=== PATIENT | female | born 1990 | race Two or more races ===

== ENCOUNTER 2024-02-13 17:38 | Emergency (ER) | payer OTHER, SELFPAY ==
[2024-02-13 17:41] VITALS: BP 114/54
[2024-02-13 17:57] LABS: % Basophils 0.8 % (0-2); % Immature Granulocytes 0.3 % (0-0.5); % Lymphocytes 44.8 % (20.5-51.1); % Monocytes 4.8 % (1.7-9.3); % Neutrophils 32.3 % (42.2-75.2); Absolute Basophils 0.1 10^3/uL (0-0.2); Absolute Eosinophils 1.2 10^3/uL (0-0.7); Absolute Lymphocytes 3.2 10^3/uL (1.2-3.4); Absolute Monocytes 0.3 10^3/uL (0.1-0.6); Absolute Neutrophils 2.3 10^3/uL (1.4-6.5); Hematocrit 35.3 % (37.0-47.0); Hemoglobin 12.2 g/dL (12.0-16.0); Mean Corp Hgb Conc. 34.6 g/dL (33.0-37.0); Mean Corpuscular Volume 83.8 fL (81.0-99.0); Nucleated Red Blood Cells % 0 %; Platelet Count 359 10^3/uL (130-400); Red Blood Cell Count 4.21 10^6/uL (4.20-5.40); Red Cell Dist. Width 12.2 % (11.5-14.5); White Blood Cell Count 7.1 10^3/uL (4.8-10.8)
[2024-02-13 18:19] LABS: ALT (SGPT) 11 U/L (0-35); AST (SGOT) 15 U/L (14-36); Albumin 3.9 g/dl (3.5-5.0); Alkaline Phosphatase 58 U/L (38-126); Blood Urea Nitrogen 18 mg/dl (7-17); Calcium 9.4 mg/dl (8.4-10.2); Carbon Dioxide 25 mmol/L (22-30); Chloride 103 mmol/L (98-107); Glucose 86 mg/dl (70-99); Potassium 4.5 mmol/L (3.5-5.1); Sodium 136 mmol/L (135-145); Total Bilirubin 0.5 mg/dl (0.2-1.3); Total Protein 7.2 g/dl (6.3-8.2); eGFR 56.03
--- NOTE | 2024-02-13 21:48 | ED.GENMED ---
History of Present Illness
General
Chief Complaint: Problems
Source: patient
Exam Limitations: none
Time Seen by Provider: 02/13/24 20:48
Travel History
Have you had any contact with someone who has COVID-19?: No
Do you have any symptoms of coronavirus? Fever > 100 degrees, chills, cough, shortness of breath, sore throat, loss of taste or smell, muscle aches, or headache?: No
History of Present Illness
History of Present Illness:
This is a 33 year old female that comes in with c/o vaginal bleeding. 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 States that she is about 5 weeks 3 days. States that the cramping slowly
drifted off and stopped about 8pm. States that she was nauseated. Denies any fever, chills, chest pain, SOB, vomiting, diarrhea, headache, dizziness, urinary burning.
Past History
Past History
ED Past Medical History: Psychiatric (Denies Bipolar diagnosis, Anxiety, ADD) and Other (Patient has a history of spina bifida, and ADHD)
ED Past Surgical History: and Other (Myringotomy tubes, )
Social History
Tobacco: Former smoker
Alcohol: None
Drug: None
Personal: Other ()
Living: with family
Employment: Not employed
Review of Systems
Review of Systems
All Other Systems: ROS reviewed and negative except as documented in HPI and ROS
Constitutional: Reports no symptoms; Denies fever or chills
EENT: Reports no symptoms
Respiratory: Reports no symptoms; Denies cough or trouble breathing
Cardiac: Reports no symptoms; Denies chest pain
ABD/GI: Reports abdominal pain (Cramping) and nausea; Denies vomiting or diarrhea
: Reports no symptoms; Denies dysuria, frequency or urgency
Musculoskeletal: Reports no symptoms
Skin: Reports no symptoms
Neurological: Reports no symptoms; Denies dizzy or headache
Psychiatric: Reports no symptoms
Phy Exam
General Physical Exam
General Presentation: well appearing and no apparent distress
General age: appears stated age
General Skin: warm and dry
General Habitus: normal
General Mental: alert
General Hydration: appears well hydrated
ENT Exam
ENT Exam: TM's normal, pharynx normal and neck supple
Eye Exam
Eye Exam: EOMI
Cardiovascular Exam
Cardiovascular Exam: regular rate/rhythm, no edema, no murmur and normal peripheral pulses
Pulmonary Exam
Pulmonary Exam: lungs clear, no respiratory distress, no rales, chest non tender, no crackles, no rhonchi, no wheezing and no cough
Gastrointestinal Exam
Gastrointestinal Exam: normal bowel sounds, non tender, soft, no organomegaly, no pulsatile mass and non distended
Genitourinary Exam Female
Vaginal Bleeding: none
Musculoskeletal Exam
Musculoskeletal Exam: full ROM and no edema
Skin Exam
Skin Exam: normal color, warm/dry, no rash and no petechia
Psychiatric Exam
Psychiatric Exam: normal mood/affect
Course
Orders/Labs/Results
Orders:
Orders
02/13/24 17:45
Test Result ONCE
US W Transvaginal Urgent
Reason For Exam: bleeding/cramping
02/13/24 17:49
Type+Screen Urgent
Beta HCG Quantitative Urgent
Comment: ADD ON
CMP [Comprehensive Metabolic Panel] Urgent
Complete Blood Count/With Diff Urgent
02/13/24 17:51
Add On- LAB Urgent
Tests Added?: HCG QUANT
Abnormal Lab Results
02/13/24
17:49
Hct 35.3 L %
(37.0-47.0)
MPV 11.0 H fL
(7.4-10.4)
Absolute Eos (auto) 1.2 H 10^3/uL
(0-0.7)
Neutrophils % 32.3 L %
(42.2-75.2)
Eosinophils % 17.0 H %
(0-6)
BUN 18 H mg/dl
(7-17)
Creatinine 1.3 H mg/dL
(0.6-1.0)
02/13/24 17:49
02/13/24 17:49
Very slight Dehydration. Cr Elevation. HCG 97505.00, A pos
Vital Signs
Initial and Last Documented VS:
Initial Vital Signs
Temp Pulse Resp BP Pulse Ox
98.3 F 61 16 114/54 100
02/13/24 17:41 02/13/24 17:41 02/13/24 17:41 02/13/24 17:41 02/13/24 17:41
Last Documented Vital Signs
Temp Pulse Resp BP Pulse Ox
98.3 F 61 16 114/54 100
02/13/24 17:41 02/13/24 17:41 02/13/24 17:41 02/13/24 17:41 02/13/24 17:41
Information
Weeks gestation: Weeks: (5)
Location: Location: (intrauterine)
MDM/Problems Addressed
Differential Diagnosis Includes:
Miscarriage, Bleeding in early
MDM/Problems Addressed:
This is a 33 year old female that comes in with c/o cramping and brownish bleeding. 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 States that the cramping by 8pm was gone.
Will get labs, US.
Back into see patient. Explained that there is an intrauterine but there is not yet a pole identified. Explained that she needs a repeat US for 1-2 weeks. Patient to return with any concerns.
Chronic conditions affecting care:
NA
Acute Exacerbation and/or Progression of Chronic Illness:
NA
*Radiology
Radiology exam reviewed: radiology read reviewed (US-Findings suggesting an early . pole is not yet identifiedl Repeat ECam in one to 2 weeks recommended )
*Pulse Oximetry
Patient hypoxic: no
*EKG
Interpreted by ED Provider?: NA
Rate: EKG- N/A
*Dressed Poultry Grader Interpretation
Rate: Dressed Poultry Grader- N/A
*Critical Care Note
Total Time (30-74mins, 75-104mins- exclusive of procedures): Not Applicable
ED Attending Note
-
Portions of this chart may have been created with voice recognition software.� Occasional wrong word or��sound alike� substitutions may have occurred due to the inherent limitations of voice recognition software.
Discharge Plan
Departure
Patient Disposition: Home (Routine Discharge)
Date of Disposition: 02/13/24
Time of Disposition: 22:15
Patient with high blood pressure during this ER visit?: No
Condition: Good
Covid-19: Not Applicable
Discharge Problem:
Bleeding in early
Instructions: Bleeding in Early (DC)
Prescriptions:
No Action
PNV comb no.[id number] [id number] [] 1 EACH capsule
1 ea PO DAILY
quetiapine 25 MG tablet
25 tab PO Q8 PRN (Reason: anxiety)
Patient Comments:
takes 1-2 tabs po as needed q 8 hrs
Referrals:
Vanda Scott, DO [Family Provider] - Call in 1-3 days for appt
Activity Restrictions/Additional Instructions:
As discussed, your blood work is normal. Your US shows that there is an intrauterine . The pole is not yet identified. You will need a repeat ultrasound in 1-2 weeks for further evaluation. This may be early bleeding in .
Follow up with your SUBSTITUTE TEACHER for further evaluation. IF YOU HAVE INCREASED BLEEDING OR ANY OTHER CONCERNS PLEASE RETURN TO THE EMERGENCY ROOM.
Interventions
Interventions:
*Risk Screen - Suicide Last Done: 02/13/24 17:41
*General Assessment Last Done: 02/13/24 17:41
*Neglect/Abuse Screening Last Done: 02/13/24 17:41
ED- Fall Risk Assessment Last Done: 02/13/24 21:35
*ED COVID-19 Vaccine History Last Done: 02/13/24 17:41
ED-Female Genitourinary Assessment Last Done: 02/13/24 21:35
Discharge Date and Time
Print Language: NIGERIEN
[2024-02-13 22:22] VITALS: BP 117/68
== END 2024-02-13 22:23 | disposition home or self-care (01) ==
LOC: EMR 17:38
PROVIDERS: Emergency Medicine; EMERGENCY PHYSICIAN Emergency Medicine; FAMILY PHYSICIAN Family Medicine
DX: O20.9 Hemorrhage in early pregnancy, unspecified (principal); Z3A.01 Less than 8 weeks gestation of pregnancy; Q05.9 Spina bifida, unspecified; Z87.891 Personal history of nicotine dependence
CPT/HCPCS: 99284; 76801; 76817; 80053; 84702; 85025; 86850; 86900; 86901